=== PATIENT | male | born 1960 | race Caucasian/White ===

== ENCOUNTER → 2017-01-21 | Outpatient (CLI) | payer OTHER ==
[~2017-01-21] MED LIST: ALBUTEROL0.63 MG/3 IH; ALBUTEROL17 GM INH; AMLODIPINE BESYL5 MG; AMOXICILLIN875 MG PO; CIPRO PO; DAZIDOX10 MG PO; DEXILANT30 MG; DEXILANT60 MG PO; FLOMAX0.4 M1; FLONASE 0.05% N16 G1; FLONASE16 GM; MEDROL4 MG/DOSE- PO; METRONIDAZOLE PO; MOBIC PO; MUCINEX1200 MG/BO PO; NEURONTIN100 MG PO; NEURONTIN300 MG PO; NO MEDICATIONS; NORVASC PO; OXYCONTIN10 MG PO; PRINIVIL20 M1 PO; SYMBICORT INH; ZOFRAN ODT4 MG/UDTAB PO
--- NOTE | ~2017-01-21 | US5 ---
[facility] A Service of [facility] & [facility] RADIOLOGY TEXT RESULTS PATIENT: CHAVEZ KEITH LOCATION: [facility] : 60 UNIT #: [id number] AGE: [address]: CLEVE DE LA TORRE SEX: M ORDER DR: [id number] [facility] [address] [place], [place] [address] [id number] O MR#: [id number] Acc #: [id number] NAME: CHAVEZ KEITH. : 1960 SEX: M STUDY DATE/TIME: 01/21/2017 9:17 UNIT: [facility] ROOM: STUDY DESCRIPTION: US Abdominal Complete Attending Physician: Cleve De La Torre Aprn Referring Physician: Cleve De La Torre Aprn Ordering Physician: Physician Non-Staff Primary Care Physician: Naeem Kumar M.D. MEDICAL IMAGING REPORT This report is preliminary unless electronic signature is present EXAM Complete abdominal ultrasound. DATE 01/21/2017 at 0917 HISTORY 56-year-old male with hepatitis C virus. COMPARISON Complete abdominal ultrasound, 12/22/2015. FINDINGS Diffusely coarsened hepatic echotexture may represent changes of cirrhosis or underlying steatosis. No focal liver lesion is identified on this examination. Intrahepatic IVC has an unremarkable bailey-scale appearance. The imaged abdominal aorta is of normal caliber measuring up to 2.2 cm proximally with normal color flow. The pancreas is largely obscured by bowel gas, but the visualized portions of the pancreas are within normal limits. Left kidney measures 11.2 cm without focal abnormality or hydronephrosis. Spleen size is normal measuring 11.8 cm maximally. Gallbladder is free of shadowing stone, sludge, wall thickening or pericholecystic fluid. Right kidney measures 11.1 cm in length without focal abnormality or hydronephrosis. Liver is mildly enlarged measuring 18.8 cm craniocaudally. Main portal vein is patent. Common bile duct caliber is normal, 4 mm, no intrahepatic biliary ductal dilation is seen. IMPRESSION 1. Diffusely coarsened hepatic echotexture suggesting features of underlying cirrhosis and/or steatosis, without significant change since 12/22/2015. No focal liver lesions are identified. [facility] A Service of [facility] & [facility] RADIOLOGY TEXT RESULTS PATIENT: CHAVEZ KEITH LOCATION: [facility] #: [id number] : 60 UNIT #: [id number] AGE: [address]: CLEVE DE LA TORRE SEX: M ORDER DR: 2. Mild hepatomegaly. 3. No ascites. 4. Remainder of the examination is within normal limits. Dictated by... Chanelle Groves M.D. THIS IS AN ELECTRONICALLY VERIFIED REPORT Chanelle Groves M.D. at 01/23/2017 7:02 PM Chetan/ivette TD: 01/21/2017 17:09 JOB #: [id number] MEDICAL IMAGING REPORT COPY
== END | disposition home or self-care (01) ==
LOC: CGUS 08:45
DX: B19.20 Unspecified viral hepatitis C without hepatic coma (principal); R16.0 Hepatomegaly, not elsewhere classified
CPT/HCPCS: 76700